=== PATIENT | male | born 1970 | race Caucasian/White ===

== ENCOUNTER → 2021-03-23 10:07 | Outpatient (CLI) | payer SELFPAY ==
[2021-03-23 12:29] LABS: Absolute Lymphocyte Count 2.65 X10^3/uL (0.83-4.51); Absolute Neutrophil Count 5.8 X10^3/uL (2.0-7.7); Basophil# 0.07 X10^3/uL; Basophil% 0.7 % (0-1); Eosinophil# 0.28 X10^3/uL; Eosinophils% 2.9 % (0-5); Hematocrit 48.3 % (40-54); Hemoglobin 16.8 g/dL (13.0-16.5); Lymphocyte # 2.65 X10^3/ul (0.83-4.51); Lymphocyte % 27.7 % (19-41); Mean Corp Hgb Conc 34.8 g/dL (32-36); Mean Corpuscular Hgb 31.3 pg (27.0-32.0); Mean Corpuscular Volume 89.9 fL (80-94); Mean Platelet Vol. 9.5 fl (6.2-12.0); Monocyte# 0.74 X10^3/uL; Monocyte% 7.7 % (0-10); NRBC Flagged by Analyzer 0 % (0-5); Neutrophil # 5.78 X10^3/uL (2.7-7.7); Neutrophil % 60.7 % (47-70); Platelet Count 247 K/mm3 (150-450); RBC Distribution Width CV 12.8 % (11.6-14.6); RBC Distribution Width SD 42.6 fl (35.1-43.9); Red Blood Count 5.37 M/mm3 (4.6-6.2); White Blood Count 9.6 K/mm3 (4.4-11.0)
[2021-03-23 12:31] LABS: AST(SGOT) 14 U/L (15-37); Alanine Aminotransfer ALT/SGPT 24 U/L (16-61); Albumin, Serum 3.6 g/dL (3.2-5.0); Alkaline Phosphatase 75 U/L (45-117); Anion Gap 5 (5-15); BUN 16 mg/dL (7-18); BUN/Creat Ratio 14.4 RATIO (10-20); Calcium,Total 9.3 mg/dL (8.5-10.1); Chloride 104 mmol/L (98-107); Creatinine, Serum 1.11 mg/dL (0.70-1.30); EST Glomerular Filtration Rate 74 mL/min (>60); Est Glom Filt Rate - Afr Amer 89 mL/min (>60); Globulin 3.7 g/dL (2.2-4.2); Glucose 119 mg/dL (74-106); Potassium 4.1 mmol/L (3.5-5.1); Protein, Total 7.3 g/dL (6.4-8.2); Sodium Level 134 mmol/L (136-145); Thyroid Stim Hormone (TSH) 0.99 uIU/mL (0.358-3.74)
== END ==
PROVIDERS: PCP Family Medicine; Referring Provider Family Medicine; Visit Provider Family Medicine
DX: R53.81 Other malaise (principal); R53.83 Other fatigue
CPT/HCPCS: 36415; 80053; 84443; 85025

== ENCOUNTER 2021-07-14 19:26 | Emergency (ER) | payer SELFPAY ==
[2021-07-14 19:27] VITALS: BP 138/87; PULSE 103; RESP 18; TEMP 36.4; O2SAT 97; BMI 24.3
--- NOTE | 2021-07-14 19:38 | ED.VIS.GI ---
HPI HPI - GI History of Present Illness Chief Complaint: Abd Pain Informant: patient Abdominal Pain/Flank Pain Onset: Yesterday Context: Gradual Onset Timing: Continuous Quality: Burning Location: Epigastric, RUQ and LUQ Current Severity: Mild Maximum Severity: Moderate Worsened by: Nothing Relieved by: Nothing Nausea/Vomiting/Emesis GI Symptom: Positive for Nausea and Vomiting Onset: Today Severity: Mild Diarrhea/Melena/Hematochezia GI Symptom: Negative for Diarrhea, Melena and Hematochezia Associated Symptoms Associated Symptoms: Negative for Dysuria, Frequency, Hematuria and Urgency Narrative Narrative: 50-year-old male history of asthma. Prior appendectomy. Said he awoke yesterday morning with epigastric pain. It wraps around both sides and goes into his back. It is been constant. It does wax and wane in intensity. He has had nausea and vomiting x1 today. No hematemesis. Initially thought he had dark stool but he did not notice any gross blood. He denies any fever. He denies any trouble urinating. He has never had pain like this before. He drinks very infrequently. Denies ever having pancreatitis. Prior similar symptoms: No Recent Illness/Hospitalization: No PFSH PFSH Medical History Asthma Smoker Home Medications salmeterol [Serevent Diskus] 1 puff INHALATION Q12 03/21/13 [History Last Taken Unknown] oxycodone-acetaminophen 1 - 2 tab PO Q4H PRN PRN #20 tab 03/17/16 [Rx Last Taken Unknown] hydrocodone-acetaminophen 1 tab PO Q4H PRN 4 Days #14 tab 07/14/21 [Rx Last Taken Unknown] ondansetron 4 mg PO Q4H #7 tab 07/14/21 [Rx Last Taken Unknown] pantoprazole [Protonix] 20 mg PO DAILY #10 tab 07/14/21 [Rx Last Taken Unknown] Allergy/AdvReac Type Severity Reaction Status Date / Time No Known Allergies Allergy Verified 07/14/21 19:28 Surgical History (Updated 07/14/21 @ 19:49 by Fabiola Burger) History of appendectomy Social History Smoking Status: Current every day smoker tobacco type: cigarettes ROS ROS ED ROS Narrative Abdominal pain. Nausea vomiting x1. Review of Systems ROS Unobtainable: Denies due to encephalopathy Constitutional Constitutional ED: Denies fever(s) ENT ENT ED: Denies ear pain Cardiovascular Cardiovascular: Denies chest pain Respiratory/Chest Respiratory/Chest: Denies dyspnea Gastrointestinal Gastrointestinal: Reports abdominal pain, nausea and vomiting; Denies constipation or diarrhea Genitourinary Genitourinary ED: Denies dysuria Musculoskeletal Musculoskeletal: Denies myalgias Integumentary Denies rash Neurologic Neurologic: Denies headache(s) Psychiatric Psychiatric: Denies depression Endocrine Endocrinology: Denies polyuria Hematologic/Lymphatic Hematologic/Lymphatic: Denies easy bruising Allergic/Immunologic Allergic/Immunologic ED: Denies urticaria EXAM Physical Exam Narrative Exam Narrative: 50-year-old male no acute distress. Vital signs stable afebrile. H EENT exam unremarkable. Neck nontender no lymphadenopathy. Lungs clear to auscultation bilaterally. Heart regular rhythm rate about 100 no murmur. Abdomen soft nondistended normal bowel sounds no peritoneal signs. Mild epigastric right upper quadrant tenderness. No Hunter sign. No McBurney's point tenderness. No signs of obstruction. No pulsatile mass. Moving all 4 extremities. No edema. Back nontender. Neurologically is awake and alert. Const Vital Signs: 07/14/21 19:27 Temperature 97.6 F L Temperature Source Temporal Pulse Rate 103 H Respiratory Rate 18 Blood Pressure 138/87 H Blood Pressure Mean 104 Pulse Ox 97 Oxygen Delivery Method Room Air Positive well nourished; Negative for obese, cachectic, contractures or unkempt General Appearance ED: NAD; Negative for unkempt, cachectic, contractures or pallor Nutritional Appearance: Negative for cachectic or obese HEENT Reports moist mucous membranes normocephalic and atraumatic Eyes PERRL and EOMs intact bilaterally Neck no lymphadenopathy, supple and no JVD General: Negative for tenderness Resp normal respiratory effort and clear to auscultation bilaterally Auscultation: Negative for rales, rhonchi or wheezes Cardio regular rate, regular rhythm, S1 normal heart sound, S2 normal heart sound and no murmurs GI non-distended and no masses; Negative for non-tender GI Narrative: Epigastric and right upper quadrant tenderness. No Hunter sign. No McBurney's point tenderness. No obstruction. No pulsatile mass. Auscultation: normoactive bowel sounds Palpation: soft, tender and rebound tenderness present; Negative for guarding or rigid Back/Spine no CVA tenderness General Back: Negative for CVA tenderness Cervical Spine: Negative for cervical spine tenderness Thoracic Spine / Upper Back: Negative for thoracic spinal tenderness Lumbar Spine / Lower Back: Negative for lumbar spinal tenderness Extremity full ROM General Extremety ED: Negative for edema or tenderness General Extremity: Negative for edema Neuro moves all extremities Sensorium / Orientation: alert, oriented to person, oriented to place and oriented to time; Negative for orientation impaired, confused, lethargic or stuporous Motor Exam: strength 5/5 throughout Psych mental status grossly normal and thought process normal Appearance: Negative for unkempt Skin no wounds General Skin Exam: Negative for jaundice or pallor Lesions: no lesions Rashes: no rashes MDM MDM MDM Narrative Medical decision making narrative: 50-year-old male with epigastric abdominal pain. Labs are pending. Treated with IV Protonix. IV Zofran for nausea. I do not think he needs imaging at this time depending on how his labs look and his emergency department course. Repeat exam at 8:33 PM still having pain. CAT scan still no peritoneal signs. Due to the elevated white count I will obtain a CAT scan of his abdomen pelvis with IV contrast. Also be given morphine for pain. Patient doing well at 9:50 PM. He is drinking p.o. fluids. He had I and his discussed his test results. Seems that he may have pancreatitis even though his lipase is normal. They are comfortable with him being discharged home. They will slowly increase his diet. He will be given Zofran for nausea. [place] for pain. And placed on Protonix. He knows return if worse. Lab Data Attestation: I reviewed the patient's lab results. Lab results narrative: CBC is elevated white count of 16.9. H&H is 16 and 46. Electrolytes sodium 135 gap of 3 normal BUN and creatinine. Normal liver enzymes. Normal lipase of 250. Labs: Laboratory Results - last 24 hr 07/14/21 07/14/21 19:42 19:42 WBC 16.9 H RBC 5.09 Hgb 16.1 Hct 46.2 MCV 90.8 MCH 31.6 MCHC 34.8 RDW Std Deviation 43.4 RDW Coeff of Keron 13.0 Plt Count 239 MPV 9.1 Immature Gran % (Auto) 0.500 Neut % (Auto) 73.6 H Lymph % (Auto) 16.3 L [place] % (Auto) 7.4 Eos % (Auto) 1.8 Baso % (Auto) 0.4 Absolute Neuts (auto) 12.5 H Absolute Lymphs (auto) 2.76 Nucleated RBC % 0 Sodium 135 L Potassium 3.9 Chloride 102 Carbon Dioxide 30.0 Anion Gap 3 L BUN 11 Creatinine 1.04 Estim Creat Clear Calc 85.79 Est GFR (MDRD) Af Amer 96 Est GFR (MDRD) Non-Af 80 BUN/Creatinine Ratio 10.6 Glucose 88 Calcium 9.2 Total Bilirubin 0.60 AST 14 L ALT 25 Alkaline Phosphatase 66 Total Protein 7.5 Albumin 4.0 Globulin 3.5 Albumin/Globulin Ratio 1.1 Lipase 250 Radiography Diagnostic Testing: Clinical Impression(s) from Imaging Studies Abdomen/Pelvis CT 07/14/21 20:36 IMPRESSION: Findings suggesting pancreatitis. Please correlate with amylase and lipase levels. Less likely duodenitis or peptic ulcer disease. Electronically Signed: Javy Osman DO at 21:17 EST , Discharge Plan Triage Chief Complaint: Abd Pain ED Provider: Jerzy Dumont Dx/Rx/DC Orders Clinical Impression: Acute abdomen, Acute pancreatitis Instructions: ED Pancreatitis Prescriptions: New hydrocodone-acetaminophen 5-325 mg tablet 1 tab PO Q4H PRN (Reason: pain) 4 Days Qty: 14 RF: 0 ondansetron 4 mg tablet,disintegrating 4 mg PO Q4H Qty: 7 RF: 0 pantoprazole [Protonix] 20 mg tablet,delayed release (DR/EC) 20 mg PO DAILY Qty: 10 RF: 0 No Action salmeterol [Serevent Diskus] 50 MCG inhaler 1 puff inhalation Q12 RF: 0 oxycodone-acetaminophen 1 TABLET tablet 1 - 2 tab PO Q4H PRN PRN (Reason: Pain) Qty: 20 RF: 0 Primary Care Provider: Heather Garcia Referrals: Heather Garcia MD [Primary Care Provider] - 3-5 Days if not improving Activity Restrictions/Additional Instructions: Plenty of fluids and rest. Slowly increase diet as tolerated. If you are feeling worse increasing pain or intractable vomiting return. Zofran as needed for nausea. You may swallow or let it dissolve under your tongue if you are too nauseated. [place] for pain or you may use Tylenol. Protonix in case you have inflammation of your stomach also. This should progressively improve if not you need reevaluated. Follow-up with your doctor if you are not improving. Avoid alcohol, fatty and greasy foods until your are feeling completely normal. Disposition Disposition: Home, Self Care
[2021-07-14] MEDS: Ondansetron 4 MG/2 ML Vial IV (19:45)
[2021-07-14 19:50] LABS: Absolute Lymphocyte Count 2.76 X10^3/uL (0.83-4.51); Absolute Neutrophil Count 12.5 X10^3/uL (2.0-7.7); Basophil# 0.07 X10^3/uL; Basophil% 0.4 % (0-1); Eosinophil# 0.31 X10^3/uL; Eosinophils% 1.8 % (0-5); Hematocrit 46.2 % (40-54); Hemoglobin 16.1 g/dL (13.0-16.5); Lymphocyte # 2.76 X10^3/ul (0.83-4.51); Lymphocyte % 16.3 % (19-41); Mean Corp Hgb Conc 34.8 g/dL (32-36); Mean Corpuscular Hgb 31.6 pg (27.0-32.0); Mean Corpuscular Volume 90.8 fL (80-94); Mean Platelet Vol. 9.1 fl (6.2-12.0); Monocyte# 1.25 X10^3/uL; Monocyte% 7.4 % (0-10); NRBC Flagged by Analyzer 0 % (0-5); Neutrophil # 12.45 X10^3/uL (2.7-7.7); Neutrophil % 73.6 % (47-70); Platelet Count 239 K/mm3 (150-450); RBC Distribution Width SD 43.4 fl (35.1-43.9); Red Blood Count 5.09 M/mm3 (4.6-6.2); White Blood Count 16.9 K/mm3 (4.4-11.0)
[2021-07-14 20:07] LABS: ALB/GLOB Ratio 1.1 RATIO (0.9-2.4); AST(SGOT) 14 U/L (15-37); Alanine Aminotransfer ALT/SGPT 25 U/L (16-61); Alkaline Phosphatase 66 U/L (45-117); Anion Gap 3 (5-15); BUN 11 mg/dL (7-18); BUN/Creat Ratio 10.6 RATIO (10-20); Calcium,Total 9.2 mg/dL (8.5-10.1); Chloride 102 mmol/L (98-107); Creatinine, Serum 1.04 mg/dL (0.70-1.30); EST Glomerular Filtration Rate 80 mL/min (>60); Est Glom Filt Rate - Afr Amer 96 mL/min (>60); Estimated Creatinine Clearance 85.79 ml/min; Globulin 3.5 g/dL (2.2-4.2); Glucose 88 mg/dL (74-106); Lipase 250 U/L (73-393); Potassium 3.9 mmol/L (3.5-5.1); Protein, Total 7.5 g/dL (6.4-8.2); Sodium Level 135 mmol/L (136-145)
--- NOTE | 2021-07-14 20:36 | CT_ITS ---
INDICATION: epigastric pain EXAMINATION: CT ABDOMEN AND PELVIS WITH CONTRAST - CT Abdomen And Pelvis W/ Contrast Injection TECHNIQUE: Helically acquired images were obtained of the abdomen and pelvis following IV contrast. A radiation dose optimization technique was used for this scan. IV Contrast dosage and agent: 100 mL of ISOVUE-300. Oral contrast: None. COMPARISON: CT abdomen and pelvis 03/17/2016. FINDINGS: LOWER CHEST: Lung bases are clear. No cardiomegaly or pericardial effusion. LIVER: Mildly decreased density suggesting mild hepatic steatosis. No corollary hypodensity to hypodensity seen on comparison unenhanced exam suggesting small hemangioma. GALLBLADDER AND BILIARY TREE: No calcified gallstones. No gallbladder distension or wall edema. No intra- or extrahepatic biliary ductal dilation. PANCREAS: Pancreatic head area of mildly decreased density in adjacent hazy margins suggesting pancreatitis. Correlation with amylase and lipase levels is recommended. SPLEEN: Normal size without focal cystic or solid mass. ADRENAL GLANDS: No nodules. KIDNEYS, URETERS and BLADDER: Normal renal size and position. No mass. No hydronephrosis. Bladder is unremarkable. PERITONEUM: No ascites or free air. No other fluid collection. BOWEL: No evidence of acute appendicitis. No abnormally distended bowel loops or air fluid levels. No wall thickening or mass. No focal inflammatory changes. Small amount of residual oral contrast seen in the colon suggesting enteric contrast administration in the left. LYMPH NODES: No enlarged mesenteric or retroperitoneal lymph nodes. VESSELS: Aorta is non-dilated. REPRODUCTIVE ORGANS: Within normal limits ABDOMINAL WALL: Small, fat filled, right inguinal hernia. BONES: No fracture or suspicious osseous . 6 nonrib-bearing lumbar vertebrae with lumbarization of S1. CT/Abdomen/Pelvis W IV Cont ONLY IMPRESSION: Findings suggesting pancreatitis. Please correlate with amylase and lipase levels. Less likely duodenitis or peptic ulcer disease. Electronically Signed: Javy Osman DO at 21:17 EST ,
[2021-07-14] MEDS: morphine 8 MG/ML Syringe 6 MG IV (21:17)
[2021-07-14 21:55] VITALS: BP 169/71; PULSE 82; RESP 18; O2SAT 91
== END 2021-07-14 22:28 | disposition home or self-care (01) ==
PROVIDERS: Emergency Provider Emergency Medicine; PCP Family Medicine; Visit Provider Emergency Medicine
DX: K85.90 Acute pancreatitis without necrosis or infection, unspecified (principal); F17.210 Nicotine dependence, cigarettes, uncomplicated; Z90.49 Acquired absence of other specified parts of digestive tract
CPT/HCPCS: 74177; 80053; 83690; 85025; 96365; 96375; 99282; Q9967; A4216; J2405

== ENCOUNTER 2022-04-18 10:36 | Emergency (ER) | payer SELFPAY ==
[2022-04-18 10:37] VITALS: BP 135/85; PULSE 107; RESP 16; TEMP 36.6; O2SAT 98; BMI 25.1
--- NOTE | 2022-04-18 10:46 | EX.ED.GENINJ ---
HPI <Dr. Jay Perez MD - Last Filed: 04/18/22 15:57> History of Present Illness Chief Complaint: Laceration Informant: patient Narrative Narrative: Patient had a piece of slate from a table landed on his left nondominant distal thumb. No other injury. It did break the skin. No numbness tingling. Mild bleeding but easily controlled with pressure. Last tetanus is unknown. He is not diabetic. Dressing it made it better. Squeezing or pressing on it makes it worse. PFSH <Dr. Jay Perez MD - Last Filed: 04/18/22 15:57> [facility] Medical History Asthma Smoker Home Medications salmeterol 50 mcg/dose blister powder for inhalation (Serevent Diskus) 1 puff inhalation DAILY 03/21/13 [History Last Taken Unknown] Allergy/AdvReac Type Severity Reaction Status Date / Time No Known Allergies Allergy Verified 04/18/22 10:40 Surgical History History of appendectomy Social History Smoking Status: Current every day smoker tobacco type: cigarettes ROS <Dr. Jay Perez MD - Last Filed: 04/18/22 15:57> ROS ED Gastrointestinal Gastrointestinal: Denies nausea or vomiting Musculoskeletal Musculoskeletal: Reports arthralgias and other Details: See history of present illness. Integumentary Reports other Details: Laceration and bruising of left thumb. Neurologic Neurologic: Denies paresthesias or weakness Endocrine Endocrinology: Denies polydipsia or polyuria Hematologic/Lymphatic Hematologic/Lymphatic: Denies easy bleeding or easy bruising EXAM <Dr. Jay Perez MD - Last Filed: 04/18/22 15:57> Physical Exam Const Vital Signs: 04/18/22 10:37 04/18/22 12:37 04/18/22 12:56 Temperature 97.9 F 98.2 F 98.3 F Temperature Source Temporal Temporal Pulse Rate 107 H 90 94 Respiratory Rate 16 18 16 Blood Pressure 135/85 H 117/77 115/74 Blood Pressure Mean 101 90 Pulse Ox 98 92 99 Oxygen Delivery Method Room Air Room Air Positive well nourished and well developed General Appearance ED: well developed and NAD HEENT atraumatic Resp normal respiratory effort Back/Spine Back/Spine Narrative: No pain with range of motion Extremity Extremity Narrative: Patient has a very small pinch of the skin on the lateral aspect of the palm at the base of the index finger. But there is no swelling or tenderness or pain with range of motion. Patient has some bruising and swelling of the distal aspect of the left thumb. Most of this is bruising in the volar lateral soft tissue tuft of the thumb. There is a 1 and half centimeter laceration proximally. Bleeding is controlled. Sensation still intact. Range of motion including both flexion extension opposition are intact. Neuro no focal motor deficits and no sensory deficits noted Sensorium / Orientation: alert Skin Skin Narrative: See above. <JESUS ALBERTO Nixon - Last Filed: 04/18/22 12:40> Physical Exam Const Vital Signs: 04/18/22 10:37 04/18/22 12:37 04/18/22 12:56 Temperature 97.9 F 98.2 F 98.3 F Temperature Source Temporal Temporal Pulse Rate 107 H 90 94 Respiratory Rate 16 18 16 Blood Pressure 135/85 H 117/77 115/74 Blood Pressure Mean 101 90 Pulse Ox 98 92 99 Oxygen Delivery Method Room Air Room Air [facility] <Dr. Jay Perez MD - Last Filed: 04/18/22 15:57> [facility] Narrative Medical decision making narrative: PA procedure note: Left distal thumb has a 1.5 cm U-shaped laceration and a smaller 0.5 cm linear laceration. The attending performed a digital block. I irrigated the wound thoroughly with sterile saline. Area was prepped and draped in sterile condition. The larger U-shaped laceration was closed with 5 simple interrupted sutures of 5-0 Ethilon. The smaller laceration was bleeding so was closed with 1 simple interrupted suture. Total 6 sutures. Patient tolerated procedure well and was given wound care and removal instructions. I had anesthetized the thumb with a total of 3 cc of a mixture of 1% lidocaine and 0.5% bupivacaine without epinephrine. Radiography Diagnostic Testing: Clinical Impression(s) from Imaging Studies Hand X-Ray 04/18/22 10:54 IMPRESSION: Normal x-ray examination of the hand. Electronically Signed: Christian Smith MD at 11:25 [facility] , Three-view x-ray of the hand shows no acute process. No foreign material. No fracture. <JESUS ALBERTO Nixon - Last Filed: 04/18/22 12:40> [facility] Narrative Medical decision making narrative: PA procedure note: Left distal thumb has a 1.5 cm U-shaped laceration and a smaller 0.5 cm linear laceration. The attending performed a digital block. I irrigated the wound thoroughly with sterile saline. Area was prepped and draped in sterile condition. The larger U-shaped laceration was closed with 5 simple interrupted sutures of 5-0 Ethilon. The smaller laceration was bleeding so was closed with 1 simple interrupted suture. Total 6 sutures. Patient tolerated procedure well and was given wound care and removal instructions. Radiography Diagnostic Testing: Clinical Impression(s) from Imaging Studies Hand X-Ray 04/18/22 10:54 IMPRESSION: Normal x-ray examination of the hand. Electronically Signed: Christian Smith MD at 11:25 [facility] Reading Location ID and State: [facility] / [place] , Service support , Discharge Plan Triage Chief Complaint: Laceration ED Provider: Jay Perez Dx/Rx/DC Orders Clinical Impression: Crush injury to thumb, Laceration of left thumb Instructions: ED Laceration, Hand: All Closures Prescriptions: No Action Serevent Diskus 50 MCG inhaler 1 puff inhalation DAILY Primary Care Provider: Heather Garcia Referrals: Heather Garcia MD [Primary Care Provider] - 10-14 Days suture removal Disposition Disposition: Home, Self Care
--- NOTE | 2022-04-18 10:54 | RAD_ITS ---
STUDY: X-RAY - LEFT HAND REASON FOR EXAM: Male, 51 years old. dropped slate pool table top on thumb TECHNIQUE: 3 view(s) of the hand. COMPARISON: None. FINDINGS: Normal radiocarpal articulation. Normal distal radioulnar joint. Normal visualized carpal bones. Normal carpal articulations Normal carpometacarpal articulation of the thumb. Normal second through fifth carpometacarpal joints. Normal metacarpi. There is no demonstrated fracture or displaced bony fragment Normal metacarpophalangeal joint of the thumb. Normal interphalangeal joint of the thumb. Normal proximal and distal phalanges of the thumb. Normal metacarpophalangeal joints of the second through fifth fingers. Normal proximal and distal interphalangeal joints of the second through fifth fingers. Normal phalanges of the second through fifth fingers. The soft tissue structures are unremarkable. RAD/Hand Min 3 Views IMPRESSION: Normal x-ray examination of the hand. Electronically Signed: Christian Smith MD at 11:25 EST ,
[2022-04-18] MEDS: Diphth,Pertuss(Acell),Tet Vac 0.5 ML Vial IM (11:05)
[2022-04-18] MEDS: Bupivacaine Mpf 0.5% 30 ML VIAL INFILT (12:00)
[2022-04-18] MEDS: Lidocaine 1% (20 ml mdv) 20 ML Vial INFILT (12:00)
[2022-04-18 12:37] VITALS: BP 117/77; PULSE 90; RESP 18; TEMP 36.8; O2SAT 92
[2022-04-18 12:56] VITALS: BP 115/74; PULSE 94; RESP 16; TEMP 36.8; O2SAT 99
== END 2022-04-18 13:08 | disposition home or self-care (01) ==
PROVIDERS: Emergency Provider Emergency Medicine; PCP Family Medicine; Visit Provider Emergency Medicine
DX: S61.012A Laceration without foreign body of left thumb without damage to nail, initial encounter (principal); F17.210 Nicotine dependence, cigarettes, uncomplicated; S67.02XA Crushing injury of left thumb, initial encounter; W23.0XXA Caught, crushed, jammed, or pinched between moving objects, initial encounter; J45.909 Unspecified asthma, uncomplicated
CPT/HCPCS: 12001; 73130; 90375; 90471; 90675; 90715; 99284

== ENCOUNTER → 2023-10-13 | Outpatient (CLI) | payer SELFPAY | END | disposition home or self-care (01) | PROVIDERS: PCP Family Medicine; Referring Provider Family Medicine; Visit Provider Family Medicine | DX: Z12.5 Encounter for screening for malignant neoplasm of prostate (principal) | CPT/HCPCS: 36415; 84153; G0103 ==

== ENCOUNTER → 2024-01-20 | Outpatient (CLI) | payer SELFPAY ==
--- NOTE | 2024-01-20 16:03 | RAD_ITS ---
INDICATION: swelling EXAMINATION/TECHNIQUE: X-RAY - RIGHT XR Elbow Min 3 Views COMPARISON: FINDINGS: SOFT TISSUES: Posterior focal soft tissue swelling without subcutaneous gas. No radiopaque foreign body. BONES/JOINTS: There is no displacement of the anterior or posterior fat pads. No acute fracture or subluxation. Normal alignment. Preservation of the joint space. No sclerotic or destructive changes observed. RAD/Elbow min 3 Views IMPRESSION: Posterior focal soft tissue swelling.. Olecranon bursitis cannot be excluded. Electronically Signed: Jose Pena DO at 19:20 EDT ,
== END | disposition home or self-care (01) ==
PROVIDERS: PCP Family Medicine; Referring Provider Family Medicine; Visit Provider Family Medicine
DX: M70.21 Olecranon bursitis, right elbow (principal)
CPT/HCPCS: 73080

== ENCOUNTER 2025-01-04 12:22 | Outpatient (CLI) | payer BC, SELFPAY ==
[2025-01-04 15:12] LABS: Hematocrit 46.7 % (40-54); Hemoglobin 16.1 g/dL (13.0-16.5); Immature Granulocytes Count 0.020 X10^3/uL (0.0-0.0); Mean Corp Hgb Conc 34.5 g/dL (32-36); Mean Corpuscular Volume 89.6 fL (80-94); Mean Platelet Vol. 9.9 fl (6.2-12.0); NRBC Flagged by Analyzer 0 % (0-5); Platelet Count 245 K/mm3 (150-450); RBC Distribution Width CV 12.3 % (11.6-14.6); RBC Distribution Width SD 40.6 fl (35.1-43.9); Red Blood Count 5.21 M/mm3 (4.6-6.2); White Blood Count 8.4 K/mm3 (4.4-11.0)
--- OUTSIDE RECORDS SUMMARY | 2025-01-04 16:09 | XMS RPT_ITS | CCD ---
Author Organization [facility] Care Team Providers Care Grinder [employer] Name Role Phone Heather Garcia Attending Unavailable Heather Garcia Referring Unavailable Heather Garcia Primary Care Unavailable Heather Garcia Attending Unavailable Heather Garcia Referring Unavailable Heather Garcia Primary Care Unavailable Medications Current Medications Medication Drug Class(es) Dates Sig (Normalized) Sig (Original) Salmeterol (1 source) beta2-Adrenergic Agonist Start: 03-21-2013 take 1 puff(s) by inhalation once daily Salmeterol (Serevent Diskus) 50 MCG inhaler Active 1 PUFF INHALATION DAILY March 21, 2013 12:00am Problems Active Problems Problem Classification Problem Date Documented Da te Episodic/Chronic Abdominal pain (2 sources) Acute abdomen; Translations: [Acute abdomen] Episodic Crushing injury or internal injury (1 source) Crush injury of thumb; Translations: [Crushing injury of unspecified thumb, initial encounter] Episodic Open wounds of extremities (1 source) Laceration of left thumb; Translations: [Laceration without foreign body of left thumb without damage to nail, initial encounter] Episodic Other connective tissue disease (1 source) Olecranon bursitis, right elbow; Translations: [Olecranon bursitis, right elbow] Onset: 02-12-2024 Episodic Pancreatic disorders (not diabetes) (1 source) Acute pancreatitis; Translations: [Acute pancreatitis without necrosis or infection, unspecified] Episodic Sprains and strains (1 source) Strain of neck muscle; Translations: [Strain of muscle, fascia and tendon at neck level, initial encounter] Episodic Superficial injury; contusion (1 source) Contusion of rib; Translations: [Contusion of unspecified front wall of thorax, initial encounter] Episodic Past or Other Problems Problem Classification Problem Date Documented Da te Episodic/Chronic Other screening for suspected conditions (not mental disorders or infectious disease) (1 source) Encounter for screening for malignant neoplasm of prostate; Translations: [Encounter for screening for malignant neoplasm of prostate] Onset: 10-24-2023 Episodic Results Test Name Value Interpretation Reference Range Facil ity Elbow min 3 Viewson 01-20-20 24 Elbow min 3 Views [facility] [address] [place] [address] Elbow min 3 Views MR#: [id number] Acct: [id number] Name: UMU MAE Rep #: [id number] : 1970 M 53 From: Jose Pena DO PCP: Dr. Heather Garcia MD Status: REG CLI Study: Elbow min 3 Views Date of Exam: 01/20/24 Exam# [id number] Ordering Dr: Heather Garcia MD [id number] INDICATION: swelling EXAMINATION/TECHNIQU E: X-RAY - RIGHT XR Elbow Min 3 Views COMPARISON: ____ FINDINGS: SOFT TISSUES: Posterior focal soft tissue swelling without subcutaneous gas. No radiopaque foreign body. BONES/JOINTS: There is no displacement of the anterior or posterior fat pads. No acute fracture or subluxation. Normal alignment. Preservation of the joint space. No sclerotic or destructive changes observed. RAD/Elbow min 3 Views IMPRESSION: Posterior focal soft tissue swelling.. Olecranon bursitis cannot be excluded. Electronically Signed: Jose Pena DO at 19:20 EDT , CC: Dr. Heather Garcia MD Claims Coordinator: Signed Normal [facility] PSA,Total - Annual Screenon 10-13-2023 PSA,TOT SCREEN 2.50 ng/mL Normal 0.00-4.00 [facility] Comment on above: Result Comment: This test was performed using the TPSA assay method for the Dimension chemistry system. Values obtained with different assay methods cannot be used interchangably. When changing PSA assays in the course of monitoring a patient, additional sequential testing should be carried out to confirm baseline values. Performed By: #### L [id number] #### [facility] [address] [place], [address] Vital Signs Date Time Vital Sign Value Performing Clinician Faci lity 04-18-2022 12:56-0500 Body temperature 98.3 [degF] [facility] Work Phone: 04-18-2022 12:56-0500 Diastolic blood pressure 74 mm[Hg] [facility] Work Phone: 04-18-2022 12:56-0500 Heart rate 94 /min [facility] Work Phone: 04-18-2022 12:56-0500 Respiratory rate 16 /min [facility] Work Phone: 04-18-2022 12:56-0500 SaO2% (BldA) [Mass fraction] 99 % [facility] Work Phone: 04-18-2022 12:56-0500 Systolic blood pressure 115 mm[Hg] [facility] Work Phone: 04-18-2022 10:37-0500 Body height 177.8 cm [facility] Work Phone: 04-18-2022 10:37-0500 Body mass index (BMI) [Ratio] 25.1 kg/m2 [facility] Work Phone: 04-18-2022 10:37-0500 Body weight 79.37 kg [facility] Work Phone: Encounters Encounter Date Encounter Type Care Provider Facility Start: 01-20-2024 End: 01-20-2024 ambulatory Heather Garcia Facility:[facility] Start: 10-13-2023 End: 10-13-2023 ambulatory Heather S Radha Facility:[facility] Start: 04-18-2022 End: 04-18-2022 Emergency department patient visit [facility]-Emergency Department Procedures Date Procedure Procedure Detail Performing Clinician Start: 04-18-2022 Plain x-ray of hand Plan of Treatment Date Care Activity Detail Author Patient Education ED Laceration, Hand: Ashwin l Closures [facility] Work Phone: Patient referral [facility] Work Phone: Immunizations Immunization Date Immunization Notes Care Provider April jaime 04-18-2022 tetanus toxoid, redu toya diphtheria toxoid, and acellular pertussis vaccine, adsorbed [facility] Work Phone: Payers Date Payer Category Payer Unknown [id number] 2016 Self-pay [id number] Unknown [id number] Unknown [id number] Social History Date Type Detail Facility Start: 04-18-[address] [facility] Unknown if ever smoked [facility] Work Phone: Start: 1970 Sex Assigned At Male [facility] Work Phone: Evaluation note Note Date & Type Note Facility Evaluation note No assessment information availa ble [facility] Work Phone: Chief Complaint and Reason for Visit Chief Complaint lac Advance Directives No Advanced Directives Records Found Advance Directive Response Recorded Date/ Time Advance Directives No March 8:35am Living Will No April 18 022 10:47am Power of Collections Technician No April 18, 2022 10:47am Summary Purpose Family History No Family History Records Found Additional Source Comments Goals (unrecognized section and content) Goals may be documented in a n alternate section (unrecognized sect ion and content) No Status Records Found INFORMATION SOURCE (unrecogn ized section and content) DATE CREATED AUTHOR 02/13/2024 [facility] FOR RECORDS PERTAINING TO PATIENTS WHO ARE OR HAVE BEEN ENROLLED IN A CHEMICAL DEPENDENCY/SUBSTANCEABUSE PROGRAM, SOME INFORMATION MAY BE OMITTED. This clinical summary was aggregated from multiple sources. Caution should be exercised in using it in the provision of clinical care. This summary normalizes information from multiple sources, and as a consequence, information in this document may materially change the coding, format and clinical context of patient data. In addition, data may be omitted in some cases. CLINICAL DECISIONS SHOULD BE BASED ON THE PRIMARY CLINICAL RECORDS. [facility] [email or web address] [facility]. provides no warranty or guarantee of the accuracy or completeness of information in this document.
[2025-01-04 16:22] LABS: AST(SGOT) 20 U/L (<=37); Alanine Aminotransfer ALT/SGPT 19 U/L (<=46); Albumin, Serum 4.3 g/dL (3.5-5.0); Alkaline Phosphatase 73 U/L (40-129); Anion Gap 12 (5-15); BUN 14 mg/dL (4-19); BUN/Creat Ratio 14.0 RATIO (10-20); Calcium,Total 9.7 mg/dL (7.6-11.0); Carbon Dioxide 24.2 mmol/L (21.0-32.0); Chloride 98 mmol/L (98-108); Cholesterol 184 mg/dL (<=200); Globulin 2.8 g/dL (2.2-4.2); Glucose 105 mg/dL (70-99); Low Density Lipoprotein Calc. 110 mg/dL; PSA,Total - Annual Screen 2.74 ng/mL (0.02-4.00); Potassium 4.3 mmol/L (3.3-5.1); Triglycerides 167 mg/dL; Very Low Density Lipoprotein 33 mg/dL (5-40); cholesterol:hdl ratio screen 4.51
== END 2025-01-04 23:59 | disposition home or self-care (01) ==
LOC: MFPLAB 12:24
PROVIDERS: PCP Family Medicine; Referring Provider Family Medicine; Visit Provider Family Medicine
DX: Z00.00 Encounter for general adult medical examination without abnormal findings (principal); Z12.5 Encounter for screening for malignant neoplasm of prostate; Z13.1 Encounter for screening for diabetes mellitus; Z13.220 Encounter for screening for lipoid disorders
CPT/HCPCS: 36415; 80053; 80061; 83036; 84153; 85025; G0103

== ENCOUNTER 2025-01-28 14:30 | Outpatient (RCR) | payer BC, SELFPAY | END 2025-02-05 23:59 | LOC: NS 14:30 | PROVIDERS: PCP Family Medicine; Referring Provider Family Medicine; Visit Provider Family Medicine | DX: Z71.3 Dietary counseling and surveillance (principal); E11.9 Type 2 diabetes mellitus without complications | CPT/HCPCS: 97802 ==